=== PATIENT | female | born 1935 | race African-American/Black ===

== ENCOUNTER 2019-04-04 19:09 | Emergency (ER) | payer BC, MEDICAID, MEDICARE ==
[~2019-04-04] VITALS: Ht 160 cm; Wt 65.0 kg
[2019-04-04 20:47] LABS: BASOPHILS % 0.5 % (0.0-2.0); EOSINOPHILS % 1.8 % (0.0-5.0); HEMATOCRIT. 34.6 % (36.0-48.0); HEMOGLOBIN. 11.6 g/dL (12.0-16.0); LYMPHOCYTES % 27.2 % (20.0-50.0); MEAN CORPUSCULAR HEMOGLOBIN 30.9 pg (28.0-32.0); MEAN CORPUSCULAR VOLUME 92.3 fL (81.0-99.0); MEAN PLATELET VOLUME 8.8 fl (7.4-10.4); MONOCYTES % 5.2 % (2.0-8.0); NEUTROPHILS % 65.3 % (40.0-76.0); PLATELET 225 x1000/uL (130-400); RED BLOOD CELL COUNT 3.75 mill/uL (4.2-5.4); RED CELL DISTRIBUTION WIDTH 14.5 % (11.6-14.6)
[2019-04-04 20:52] LABS: CHLORIDE 100 mEq/L (98-107)
[2019-04-04 21:57] LABS: CLARITY URINE TURBID (CLEAR); COLOR URINE YELLOW (YELLOW); KETONES URINE NEGATIVE (NEGATIVE); LEUKOCYTE ESTERASE URINE 2+ (NEGATIVE); NITRITE URINE NEGATIVE (NEGATIVE); OCCULT BLOOD URINE NEGATIVE (NEGATIVE); PH URINE 8.5 (4.5-8.0); PROTEIN URINE NEGATIVE (NEGATIVE); SPECIFIC GRAVITY URINE 1.016 (1.005-1.030); UROBILINOGEN URINE 0.2 E.U./dL (0.2-1.0)
[2019-04-04 22:18] LABS: *AMPHETAMINES SCREEN URINE NEGATIVE (NEGATIVE); *BARBITURATES SCREEN URINE NEGATIVE (NEGATIVE)
[2019-04-04 22:19] LABS: *BENZODIAZEPINES SCREEN URINE NEGATIVE (NEGATIVE); *COCAINE SCREEN URINE NEGATIVE (NEGATIVE); CANNABINOID URINE SCREEN NEGATIVE (NEGATIVE); METHADONE URINE SCREEN NEGATIVE (NEGATIVE); OPIATES URINE SCREEN NEGATIVE (NEGATIVE); PHENCYCLIDINE URINE SCREEN NEGATIVE (NEGATIVE)
[2019-04-04] MEDS ORDERED: SULFAMETHOXAZOLE/TRIMETHOPRIM 800/160MG TABLET PO ONE (23:00)
[2019-04-05 00:05] VITALS: BP 143/85
== END 2019-04-05 00:05 | disposition home or self-care (01) ==
LOC: ER 21:01
DX: K52.9 Noninfective gastroenteritis and colitis, unspecified (principal); E87.6 Hypokalemia; R11.2 Nausea with vomiting, unspecified; N39.0 Urinary tract infection, site not specified; R31.9 Hematuria, unspecified; R82.71 Bacteriuria; N17.0 Acute kidney failure with tubular necrosis; E86.0 Dehydration; R42 Dizziness and giddiness; R53.81 Other malaise; R53.83 Other fatigue; R78.89 Finding of other specified substances, not normally found in blood; E87.70 Fluid overload, unspecified; R06.89 Other abnormalities of breathing; R00.1 Bradycardia, unspecified; I10 Essential (primary) hypertension; Z90.710 Acquired absence of both cervix and uterus
CPT/HCPCS: 36415; 71045; 80305; 83605; 83880; 84145; 84484; 93005; 99284

== ENCOUNTER 2020-06-12 15:33 | Emergency (ER) | payer MEDICARE ==
[~2020-06-12] VITALS: Ht 160 cm; Wt 64.0 kg
[2020-06-12] MEDS ORDERED: TETANUS, DIPHTHERIA, PERTUSSIS VAC/PF 0.5ML (>7YR OLD) IM ONE (17:15)
[2020-06-12] MEDS ORDERED: DIPHENHYDRAMINE 25MG CAPSULE PO ONE (17:15)
[2020-06-12] MEDS ORDERED: ACETAMINOPHEN 500MG TABLET PO ONE (17:15)
[2020-06-12 17:30] VITALS: BP 150/76
== END 2020-06-12 17:30 | disposition home or self-care (01) ==
LOC: ER 15:33
DX: S40.862A Insect bite (nonvenomous) of left upper arm, initial encounter (principal); S40.861A Insect bite (nonvenomous) of right upper arm, initial encounter; S00.561A Insect bite (nonvenomous) of lip, initial encounter; I10 Essential (primary) hypertension; Z90.710 Acquired absence of both cervix and uterus; W57.XXXA Bitten or stung by nonvenomous insect and other nonvenomous arthropods, initial encounter; Y93.9 Activity, unspecified; Y92.9 Unspecified place or not applicable
CPT/HCPCS: 90471; 90715; 99283; Q0163